=== PATIENT | female | born 1985 | race Caucasian/White ===

== ENCOUNTER 2024-04-15 09:16 | Emergency (ER) | payer MEDICAID, SELFPAY ==
[2024-04-15 09:29] VITALS: BP 120/81; PULSE 95; RESP 18; TEMP 36.4; O2SAT 98; BMI 26.6
--- NOTE | 2024-04-15 09:44 | DI.US.S_ITS ---
PROCEDURE: US RENAL COMPLETE INDICATIONS: R renal cyst with increase in pain TECHNIQUE: Real-time scanning was performed of the kidneys and bladder, with image documentation. COMPARISON: None. FINDINGS: Kidneys: Kidneys are normal in size. Right kidney measures 11.7 cm long; left kidney measures 12.6 cm long. Right renal cortical thickness is 1.5 cm; left renal cortical thickness is 1.4 cm. Renal cortical echotexture is normal. No hydronephrosis or nephrolithiasis. No suspicious solid mass lesions. Benign, anechoic renal cyst measuring 1.8 x 1.3 x 1.6 cm on the left. Bladder: Pre-void bladder volume is 33 mL. Pre-void images demonstrate no intraluminal masses or stones. On pre-void images, neither ureteral jets are noted with color Doppler interrogation. (Of note, ureteral jets may not be detectable in up to 25% of cases due to insufficient differences in specific gravity between ureteral and bladder urine). Miscellaneous: No free pelvic fluid. IMPRESSION: No hydronephrosis. Benign left renal cyst measuring 1.8 cm. No right-sided renal cyst. Dictated by: Jeffrey Richardson M.D. on 04/15/2024 at 11:30 Approved by: Jeffrey Richardson M.D. on 04/15/2024 at 11:31
--- NOTE | 2024-04-15 09:50 | ED.GENADULT ---
HPI - General Adult General Chief complaint: Urogenital-Female Stated complaint: Cyst on Right Kidney Time Seen by Provider: 04/15/24 09:43 Source: patient Mode of arrival: Ambulatory History of Present Illness HPI narrative: Patient is a 38-year-old female. She states she was a known 18 cm cyst on her right kidney. She was being followed by Urology for this. There was recommendation of having it removed however she stated that her insurance company denied the claim. She states her kidney functions have what has been the same. She was here because of pain that occurred this morning in her right flank over her kidney that is consistent with the pain that she has had in the past because of the cyst but has never lasted this long. She also reports some nausea. No fevers. And has dark-colored urine. She was having some uterine cramping but she just started her menstrual cycle. Related Data Home Medications Medication Instructions Recorded Confirmed [PRILOSEC] 40 mg PO BID ##0 10/24/11 [RESCUE INHALER] ##0 10/24/11 amitriptyline 25 mg tablet 25 mg PO HS ##0 04/28/12 gabapentin 300 mg capsule 400 mg PO BID ##0 04/28/12 (Neurontin) Previous Rx's Medication Instructions Recorded ondansetron 4 mg disintegrating 4 mg PO Q6H PRN nausea and 04/15/24 tablet vomiting #10 tabs Allergies Allergy/AdvReac Type Severity Reaction Status Date / Time ASPIRIN Allergy Mild NAUSEA. Uncoded 04/15/24 09:35 BROKEN BLOOD VESSEL From BENADRYL ALLERGY Allergy Unknown Uncoded 04/15/24 09:35 PENICILLIN Allergy Unknown Uncoded 04/15/24 09:35 Review of Systems Review of Systems Narrative: See HPI Patient History Social History Smoking Status: Current every day smoker Smoking Status: Current every day smoker tobacco type: cigarettes alcohol intake frequency: 0-2 drinks per day Substance Use Type: marijuana Exam Initial Vital Signs Initial Vital Signs: Vital Signs Temperature 97.5 F L 04/15/24 09:29 Pulse Rate 95 H 04/15/24 09:29 Respiratory Rate 18 04/15/24 09:29 Blood Pressure 120/81 04/15/24 09:29 Pulse Oximetry 98 04/15/24 09:29 Oxygen Delivery Method Room Air 04/15/24 09:29 Const General: cooperative, comfortable and No ill appearing [facility] Head: normal to inspection and normocephalic Resp Effort & Inspection: normal respiratory effort Auscultation: clear to auscultation bilaterally Cardio Rate: regular rate Rhythm: regular rhythm GI Inspection: normal to inspection and non-distended Palpation: soft, No firm, No guarding and No tender Skin General: no rashes or lesions noted Neuro General: patient alert, patient awake, patient oriented x3 and moves all extremities Extrem General: capillary refill normal Course Orders Ordered: ED Orders 04/15/24 09:44 US renal complete Stat Urine Microscopic Stat 04/15/24 09:45 Complete Blood Count AUTO DIFF Stat Comprehensive Metabolic Panel Stat Lipase Stat 04/15/24 10:46 CT abdomen pelvis w con Stat Ondansetron HCl (Ondansetron 4 Mg/2 Ml Inj) 4 mg IV NOW PRN PRN Reason: Nausea And Vomiting Last Admin: 04/15/24 09:53 Dose: 4 mg Documented By: MADISON Ondansetron HCl (Ondansetron 4 Mg Odt) 4 mg SL NOW PRN PRN Reason: Nausea And Vomiting Discontinued Medications Hydromorphone HCl (Hydromorphone 1 Mg Inj) 1 mg IV NOW ONE Stop: 04/15/24 11:33 Last Admin: 04/15/24 11:48 Dose: 1 mg Documented By: MONSERRAT Morphine Sulfate (Morphine 4 Mg/Ml Inj) 4 mg IV NOW ONE Stop: 04/15/24 09:50 Last Admin: 04/15/24 09:53 Dose: 4 mg Documented By: MADISON Ondansetron HCl (Ondansetron 4 Mg/2 Ml Inj) 4 mg IV NOW ONE Stop: 04/15/24 10:47 Last Admin: 04/15/24 10:50 Dose: 4 mg Documented By: KIMMY Vital Signs Vital signs: Vital Signs - 8 hr 04/15/24 09:29 04/15/24 12:00 Temperature 97.5 F L Pulse Rate 95 H 63 Respiratory Rate 18 Blood Pressure 120/81 115/68 Pulse Oximetry 98 98 Oxygen Delivery Method Room Air Room Air Medical Decision Making Lab Data Lab results reviewed: Yes I reviewed the patient's lab results. 04/15/24 09:45 04/15/24 09:45 Labs: Lab Results 04/15/24 04/15/24 Range/Units 09:44 09:45 WBC 7.9 (4.5-11.0) X10^3/uL RBC 4.38 (4.0-5.2) X10^6/uL Hgb 15.0 (12.0-16.0) g/dL Hct 43.3 (36-46) % MCV 99.0 (80-100) fL MCH 34.1 H (26-34) PG MCHC 34.5 (30-36) % RDW 13.6 (11.6-14.8) % Plt Count 309 (150-400) X10^3/uL Neut % (Auto) 65.3 (50-75) % Lymph % (Auto) 24.6 L (25-40) % [place] % (Auto) 8.6 (3-14) % Eos % (Auto) 0.9 L (2-4) % Baso % (Auto) 0.6 (0-2) % Neut # (Auto) 5200 (3788-8302) /uL Lymph # (Auto) 2000 (5066-1487) /uL [place] # (Auto) 700 (0-900) /uL Eos # (Auto) 100 (0-450) /uL Baso # (Auto) 0 (0-100) /uL Sodium 138 (137-145) mmol/L Potassium 4.1 (3.4-5.1) mmol/L Chloride 111 H (98-107) mmol/L Carbon Dioxide 21 L (22-32) mmol/L BUN 9 (7-17) mg/dL Creatinine 0.58 (0.52-1.04) mg/dL Estimated GFR > 60 (>60) mL/min BUN/Creatinine Ratio 15.5 (6-22) Glucose 104 H (70-100) mg/dL Calcium 8.5 (8.4-10.2) mg/dL Total Bilirubin 0.5 (0.2-1.3) mg/dL AST 22 (14-36) IU/L ALT 13 (<35) IU/L Alkaline Phosphatase 82 (38-126) U/L Total Protein 7.0 (6.3-8.2) g/dL Albumin 4.2 (3.5-5.0) g/dL Globulin 2.8 (1.7-4.1) g/dL Albumin/Globulin Ratio 1.5 (1.0-2.8) Lipase 510 H (23-300) U/L Urine RBC 1-5/hpf (0-5/HPF) Urine WBC 0-1/hpf (0-5/HPF) Ur Squamous Epith Cells 1-5 /hpf (0-5/HPF) Urine Bacteria None seen (None) Ur Culture Indicated? Cult not indicated Vol Urine Centrifuged 10ml (spun) Point of Care Testing Test Results Negative Urine Dip Bedside Urine Glucose Negative Bedside Urine Bilirubin - Negative Bedside Urine Ketone - Negative Urine Specific [place] 1.010 Bedside Urine Occult Blood +++ Bedside Urine pH 6.0 Bedside Urine Protein - Negative Bedside Urine Urobilinogen - Negative Bedside Urine Nitrite - Negative Bedside Urine Leukocytes - Negative Esterase Point of care testing: Point of Care Testing Test Results Negative Urine Dip Bedside Urine Glucose Negative Bedside Urine Bilirubin - Negative Bedside Urine Ketone - Negative Urine Specific [place] 1.010 Bedside Urine Occult Blood +++ Bedside Urine pH 6.0 Bedside Urine Protein - Negative Bedside Urine Urobilinogen - Negative Bedside Urine Nitrite - Negative Bedside Urine Leukocytes - Negative Esterase Imaging Data CT scan - abdomen/pelvis: Radiologist's Impression: PROCEDURE: CT ABDOMEN PELVIS W CON INDICATIONS: R sided flank pain TECHNIQUE: After the administration of intravenous contrast, axial sections acquired from the lung bases to the pubic symphysis. Coronal and sagittal reformats were performed. For radiation dose reduction, the following was used: automated exposure control, adjustment of mA and/or kV according to patient size. COMPARISON: None. FINDINGS: Image quality: Diagnostic. Lower Chest: No significant findings. ABDOMEN: Liver: No solid mass. Gallbladder: Surgically absent Biliary ducts: Prominent biliary tree post cholecystectomy. No obstructing lesion identified. Pancreas: No ductal dilation. Spleen: Size is within normal limits. Adrenal Glands: No adrenal nodules. Kidneys and Ureters: No hydronephrosis. No solid mass. No complex renal cystic lesion which requires follow up. Stomach and Bowel: Normal colonic caliber, without significant wall thickening. No appendix identified. No secondary findings of acute appendicitis. Peritoneum: No abnormal intraperitoneal fluid. No free air. Ventral Wall: No significant ventral hernia. Abdominal Nodes: No retroperitoneal or mesenteric adenopathy by size criteria. Vessels: Aorta and inferior vena cava are normal in size. PELVIS: Pelvic Organs: Unremarkable. Bladder: No bladder wall thickening, accounting for underdistention. Pelvic Nodes: No enlarged lymph nodes. Miscellaneous: No inguinal hernias are seen. Bones: No aggressive osseous abnormality. IMPRESSION: 1. Remote cholecystectomy. 2. Normal appearing kidneys and ureters. 3. No acute abdominal process identified. renal US: Radiologist's Impression: PROCEDURE: US RENAL COMPLETE INDICATIONS: R renal cyst with increase in pain TECHNIQUE: Real-time scanning was performed of the kidneys and bladder, with image documentation. COMPARISON: None. FINDINGS: Kidneys: Kidneys are normal in size. Right kidney measures 11.7 cm long; left kidney measures 12.6 cm long. Right renal cortical thickness is 1.5 cm; left renal cortical thickness is 1.4 cm. Renal cortical echotexture is normal. No hydronephrosis or nephrolithiasis. No suspicious solid mass lesions. Benign, anechoic renal cyst measuring 1.8 x 1.3 x 1.6 cm on the left. Bladder: Pre-void bladder volume is 33 mL. Pre-void images demonstrate no intraluminal masses or stones. On pre-void images, neither ureteral jets are noted with color Doppler interrogation. (Of note, ureteral jets may not be detectable in up to 25% of cases due to insufficient differences in specific gravity between ureteral and bladder urine). Miscellaneous: No free pelvic fluid. IMPRESSION: No hydronephrosis. Benign left renal cyst measuring 1.8 cm. No right-sided renal cyst. MDM Narrative Medical decision making narrative: Ultrasound does not show a right-sided renal cyst which the patient states that she had a ?18 cm? cyst on this side. There was no signs that anything has ruptured. CT scan showed no acute pathology. Her labs are unremarkable. There was no sign of any surgical pathology. No sign of any infectious etiology. There are no skin changes over the area concerning for zoster. Discussed all this with the patient. Advised that she keep her follow-up appointment with her biostatistics director next week. Will discharge home with nausea medicine. She can take Tylenol/ibuprofen for any discomfort. Discharge Plan Departure Patient Disposition: Home Clinical Impression: Flank pain Instructions: DI for Flank Pain Activity Restrictions/Additional Instructions: Recommend that you continue to keep all of your scheduled medical appointments. Continue to take all of your medications as directed. You can take Tylenol/ibuprofen for discomfort. Return to the emergency department for new symptoms. Prescriptions: New ondansetron 4 mg tablet,disintegrating 4 mg PO Q6H PRN (Reason: nausea and vomiting) Qty: 10 0RF No Action [PRILOSEC] 40 mg PO BID Qty: 0 [RESCUE INHALER] Qty: 0 gabapentin [Neurontin] 300 MG capsule 400 mg PO BID Qty: 0 amitriptyline 25 MG tablet 25 mg PO HS Qty: 0 Referrals: Alecia Riggs PA-C [Primary Care Provider] - Stand Alone Forms: Patient Portal/API
[2024-04-15] MEDS: MORPHINE 4 MG/ML INJ IV (09:53)
[2024-04-15] MEDS: ONDANSETRON 4 MG/2 ML INJ IV ×2 (09:53→10:50)
[2024-04-15 09:54] LABS: Add Manual Diff / Slide Review NO; Basophils Absolute Auto 0 /uL (0-100); Basophils Percent Auto 0.6 % (0-2); Eosinophils Absolute Auto 100 /uL (0-450); Eosinophils Percent Auto 0.9 % (2-4); Hematocrit 43.3 % (36-46); Lymphocytes Absolute Auto 2000 /uL (1100-4500); Lymphocytes Percent Auto 24.6 % (25-40); Mean Corpuscular HGB Conc 34.5 % (30-36); Mean Corpuscular Hemoglobin 34.1 PG (26-34); Monocytes Absolute Auto 700 /uL (0-900); Monocytes Percent Auto 8.6 % (3-14); Neutrophils Absolute Auto 5200 /uL (1500-7000); Neutrophils Percent Auto 65.3 % (50-75); Platelet Count 309 X10^3/uL (150-400); Red Blood Cell Count 4.38 X10^6/uL (4.0-5.2); Red Cell Distribution Width 13.6 % (11.6-14.8); White Blood Cell Count 7.9 X10^3/uL (4.5-11.0)
[2024-04-15 10:03] LABS: Alanine Aminotransferase 13 IU/L (<35); Albumin 4.2 g/dL (3.5-5.0); Albumin Globulin Ratio 1.5 (1.0-2.8); Alkaline Phosphatase 82 U/L (38-126); Aspartate Aminotransferase 22 IU/L (14-36); BUN Creatinine Ratio 15.5 (6-22); Bilirubin Total 0.5 mg/dL (0.2-1.3); Blood Urea Nitrogen 9 mg/dL (7-17); Calcium 8.5 mg/dL (8.4-10.2); Carbon Dioxide 21 mmol/L (22-32); Chloride 111 mmol/L (98-107); Estimated Glomerular Filt Rate > 60 mL/min (>60); Globulin 2.8 g/dL (1.7-4.1); Glucose 104 mg/dL (70-100); HEMOLYSIS 16 (0-50); Lipase 510 U/L (23-300); Potassium 4.1 mmol/L (3.4-5.1); Sodium 138 mmol/L (137-145)
[2024-04-15 10:05] LABS: Bacteria Urine None Seen; Culture Indicated Urine Cult Not Indicated; RBC Urine 1-5/HPF (0-5/HPF); Squamous Epithelial Cell Urine 1-5 /HPF (0-5/HPF); Urine Volume 10mL (spun); WBC Urine 0-1/HPF (0-5/HPF)
--- NOTE | 2024-04-15 10:46 | DI.CT.S_ITS ---
PROCEDURE: CT ABDOMEN PELVIS W CON INDICATIONS: R sided flank pain TECHNIQUE: After the administration of intravenous contrast, axial sections acquired from the lung bases to the pubic symphysis. Coronal and sagittal reformats were performed. For radiation dose reduction, the following was used: automated exposure control, adjustment of mA and/or kV according to patient size. COMPARISON: None. FINDINGS: Image quality: Diagnostic. Lower Chest: No significant findings. ABDOMEN: Liver: No solid mass. Gallbladder: Surgically absent Biliary ducts: Prominent biliary tree post cholecystectomy. No obstructing lesion identified. Pancreas: No ductal dilation. Spleen: Size is within normal limits. Adrenal Glands: No adrenal nodules. Kidneys and Ureters: No hydronephrosis. No solid mass. No complex renal cystic lesion which requires follow up. Stomach and Bowel: Normal colonic caliber, without significant wall thickening. No appendix identified. No secondary findings of acute appendicitis. Peritoneum: No abnormal intraperitoneal fluid. No free air. Ventral Wall: No significant ventral hernia. Abdominal Nodes: No retroperitoneal or mesenteric adenopathy by size criteria. Vessels: Aorta and inferior vena cava are normal in size. PELVIS: Pelvic Organs: Unremarkable. Bladder: No bladder wall thickening, accounting for underdistention. Pelvic Nodes: No enlarged lymph nodes. Miscellaneous: No inguinal hernias are seen. Bones: No aggressive osseous abnormality. IMPRESSION: 1. Remote cholecystectomy. 2. Normal appearing kidneys and ureters. 3. No acute abdominal process identified. Dictated by: Sanchez Beltran M.D. on 04/15/2024 at 11:57 Approved by: Sanchez Beltran M.D. on 04/15/2024 at 12:11
[2024-04-15] MEDS: HYDROMORPHONE 1 MG INJ IV (11:48)
[2024-04-15 12:00] VITALS: BP 115/68; PULSE 63; O2SAT 98
== END 2024-04-15 12:44 | disposition home or self-care (01) ==
PROVIDERS: Emergency Provider Emergency Medicine; Family Provider Physician Assistant; PCP Physician Assistant
DX: R10.9 Unspecified abdominal pain (principal)
CPT/HCPCS: 36415; 74177; 76770; 80053; 81003; 81015; 81025; 83690; 85025; 96374; 96375; 96376; 99284; J1170; J2270; J2405; Q9967